=== PATIENT | female | born 1930 | race Caucasian/White ===

== ENCOUNTER → 2017-09-19 | Outpatient (CLI) | payer MEDICARE ==
--- NOTE | 2017-09-20 11:17 | MM ---
Reason for exam: screening (asymptomatic). Last mammogram was performed 1 year and 2 months ago. History: Patient is postmenopausal. Family history of breast cancer in maternal aunt at age 80. Physical Findings: A clinical breast exam by your physician is recommended on an annual basis and results should be correlated with mammographic findings. MG Screening Mammo w CAD Bilateral CC and MLO view(s) were taken. Prior study comparison: July 27, 2016, bilateral MG screening mammo w CAD. March 31, 2015, right breast MG work up mamm w CAD RT. The breast tissue is heterogeneously dense. This may lower the sensitivity of mammography. Finding: There are stable typically benign calcifications in both breasts. No significant changes in finding since July 27, 2016 and March 31, 2015. ASSESSMENT: Benign, BI-RAD 2 RECOMMENDATION: Routine screening mammogram of both breasts in 1 year.
== END | disposition home or self-care (01) ==
LOC: RADMAMWWP 14:42
PROVIDERS: ATTEND Family Medicine
DX: Z12.31 Encounter for screening mammogram for malignant neoplasm of breast (principal)

== ENCOUNTER → 2017-12-25 | Outpatient (CLI) | payer MEDICARE ==
[2017-12-25 17:39] LABS: Blood Urea Nitrogen 20 mg/dL (7-17)
--- NOTE | 2017-12-26 08:43 | CT ---
EXAMINATION TYPE: CT abdomen pelvis w con DATE OF EXAM: 12/25/2017 HISTORY: Patient states feces leaking out around ostomy pouch x 3-4 weeks. Abdominal pain, uncomforta ble feeling. CT DLP: 456.10mGycm Automated Exposure Control for Dose Reduction was Utilized. CONTRAST: CT scan of the abdomen and pelvis is performed with IV Contrast, patient injected with 100 mL of Omni paque 300. COMPARISON: 06/10/2010 FINDINGS: LUNG BASES: Minimal bibasilar subsegmental dependent atelectasis is seen. There is a slight pectus ex cavatum deformity impressing upon the right atrium. LIVER/GB: No significant abnormality is appreciated. PANCREAS: No significant abnormality is seen. SPLEEN: No significant abnormality is seen. No splenomegaly. ADRENALS: No nodularity or thickening. KIDNEYS: Retroaortic left renal vein is incidentally noted. Kidneys enhance symmetrically. BOWEL: There is a left lower quadrant ostomy with parastomal hernia containing folding loops of large bowel and diverticula without inflammatory fat stranding or evidence of obstruction.. No enterocutan eous fistula is noted Contrast is present within these bowel loops. No focal fluid collection. Small bowel is nondilated. LYMPH NODES: No greater than 1cm abdominal or pelvic lymph nodes are appreciated. 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 Compression deformity is new from the prior of 2009 . OTHER: Moderate calcific atheromatous changes are seen of the abdominal aorta and its branches. Abdom inal aorta is of normal caliber. Phleboliths within the left gonadal vein are incidentally noted. No enterocutaneous fistula is seen. No focal fluid collection. 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 No evidence of obstruction.
== END | disposition home or self-care (01) ==
LOC: RADCTMAIN 16:46
PROVIDERS: ATTEND Family Medicine
DX: K43.5 Parastomal hernia without obstruction or gangrene (principal); Z85.048 Personal history of other malignant neoplasm of rectum, rectosigmoid junction, and anus
CPT/HCPCS: 82565; 84520; 74177; 36415; Q9967

== ENCOUNTER → 2018-03-13 | Outpatient (CLI) | payer MEDICARE ==
[2018-03-13 10:28] VITALS: BP 150/70; PULSE 71; RESP 16; TEMP 97.6
== END | disposition home or self-care (01) ==
LOC: PROCWHC3 09:59
PROVIDERS: ATTEND Family Medicine
DX: K43.5 Parastomal hernia without obstruction or gangrene (principal)
CPT/HCPCS: 99214